=== PATIENT | male | born 1990 ===

== ENCOUNTER 2018-08-08 21:44 | Emergency (ER) | payer SELFPAY ==
[2018-08-08 22:01] VITALS: O2SAT 100
--- NOTE | 2018-08-08 22:41 | C.PDOC ---
History Of Present Illness 28 year old male presents to the ED for evaluation of lower abdominal cramping and bloating which began 4 days ago. Patient states last bowel movement was 4 days ago. Patient reports positive flatus. Patient reports occasional nausea. Denies fever, past surgical history is negative. VIA TRANS LOWER ABD CRAMPING, BLOATING X 4 DAYS. LAST BM 4 DAYS AGO, +FLATUS. PSH NEG. OCC NAUSEA NO FEVER EXAM NAD ABD SOFT NT ND NO R/G REMAINDER NEG Time Seen by Provider: 08/08/18 22:24 Chief Complaint (Nursing): Abdominal Pain History Per: Patient History/Exam Limitations: no limitations Onset/Duration Of Symptoms: Days (4) Current Symptoms Are (Timing): Still Present Location Of Pain/Discomfort: Other (lower abdomen ) Associated Symptoms: Nausea. denies: Fever Past Medical History Reviewed: Historical Data, Nursing Documentation, Vital Signs Vital Signs: Last Vital Signs Temp 99.4 F 08/08/18 21:57 Pulse 63 08/08/18 21:57 Resp 20 08/08/18 21:57 BP 164/91 H 08/08/18 21:57 Pulse Ox 100 08/08/18 21:57 - Medical History PMH: No Chronic Diseases Surgical History: No Surg Hx Family History: States: Unknown Family Hx - Social History Hx Alcohol Use: No Hx Substance Use: No - Immunization History Hx Tetanus Toxoid Vaccination: No Hx Influenza Vaccination: No Hx Pneumococcal Vaccination: No Review Of Systems Constitutional: Negative for: Fever Gastrointestinal: Positive for: Nausea, Abdominal Pain (lower abdomen ) Physical Exam - Physical Exam Appears: Non-toxic, No Acute Distress Skin: Normal Color, Warm, Dry Head: Atraumatic, Normacephalic Eye(s): bilateral: Normal Inspection Oral Mucosa: Moist Neck: Supple Chest: Symmetrical, No Deformity, No Tenderness Cardiovascular: Rhythm Regular, No Murmur Respiratory: Normal Breath Sounds, No Rales, No Rhonchi, No Wheezing Gastrointestinal/Abdominal: Soft, No Tenderness, No Distention, No Guarding, No Rebound Extremity: Normal ROM, Capillary Refill (less than 2 seconds ) Neurological/Psych: Oriented x3, Normal Speech, Normal Cognition ED Course And Treatment O2 Sat by Pulse Oximetry: 100 (on RA ) Pulse Ox Interpretation: Normal - Other Rad ABD X-Ray: Interpreted by Me (+FOS) Progress Note: Abdomen XR ordered and reviewed. Disposition Counseled Patient/Family Regarding: Studies Performed, Diagnosis, Need For Followup, Rx Given - Disposition Referrals: [facility] [Outside] [facility] [Outside] Disposition: HOME/ ROUTINE Disposition Time: 23:03 Condition: GOOD Prescriptions: Docusate Sodium [Colace] 100 mg PO BID PRN #30 capsule PRN Reason: Constipation Magnesium Citrate [[facility] Magnesium Citrate] 300 ml PO ONCE #1 bottle Instructions: Constipation, Adult (DC) Forms: [email or web address] (Montenegrin), Work Excuse Print Language: CANADIAN - Clinical Impression Clinical Impression: Abdominal colic, Constipation - Scribe Statement The provider has reviewed the documentation as recorded by the Scribe Provider Attestation: All medical record entries made by the Scribe were at my direction and personally dictated by me. I have reviewed the chart and agree that the record accurately reflects my personal performance of the history, physical exam, medical decision making, and the department course for this patient. I have also personally directed, reviewed, and agree with the discharge instructions and disposition.
[2018-08-08 23:23] VITALS: BP 131/77; PULSE 69; RESP 18; TEMP 98.1
--- NOTE | 2018-08-09 07:44 | RAD ---
Date of service: 08/08/2018 HISTORY: BLOATING, ABD PAIN COMPARISON: None available. FINDINGS: BOWEL: Moderate amount retained fecal material scattered throughout the large bowel. There is a nonobstructive bowel gas pattern appreciated. No abnormal internal calcifications or gross free intra peritoneal gas collection BONES: Normal. OTHER FINDINGS: None. IMPRESSION: Nonobstructive bowel gas pattern appreciated moderate retained material scattered throughout the large bowel relatively diffusely but sparing the rectum.
== END 2018-08-08 23:25 | disposition home or self-care (01) ==
LOC: C.ER 21:44
DX: K59.00 Constipation, unspecified (principal); R10.84 Generalized abdominal pain

== ENCOUNTER 2018-12-15 22:40 | Emergency (ER) | payer SELFPAY | END 2018-12-16 00:12 | disposition home or self-care (01) | LOC: C.ER 12-16 00:12 ==